=== PATIENT | male | born 2000 | race Hispanic/Latino ===

== ENCOUNTER 2023-10-20 00:13 | Emergency (ER) | payer OTHER ==
[~2023-10-20] VITALS: Ht 175.3 cm; Wt 101.0 kg
[~2023-10-20 00:13] MED LIST: IMIT50TA PO
[2023-10-20] MEDS ORDERED: GABA-282 PO (00:20)
[2023-10-20] MEDS ORDERED: TRAZ1TAB11 PO (00:20)
[2023-10-20] MEDS ORDERED: BACT800T5 PO (01:05)
[2023-10-20] MEDS ORDERED: BACTRIM 160MG/800MG DS TAB PO ONE (01:10)
[2023-10-20 01:15] VITALS: BP 130/60; TEMP 96.8; O2SAT 97
== END 2023-10-20 01:53 | disposition home or self-care (01) ==
LOC: M ED 00:13
DX: L05.91 Pilonidal cyst without abscess (principal); Z79.899 Other long term (current) drug therapy

== ENCOUNTER → 2024-02-05 | Outpatient (REF) ==
[~2024-02-05] MED LIST changes: +BACT800T5 PO; +GABA-282 PO; +TRAZ1TAB11 PO
== END ==
LOC: M PLAIMG 10:11
PROVIDERS: ATTEND Internal Medicine
DX: R06.02 Shortness of breath (principal)

== ENCOUNTER → 2024-09-01 | Outpatient (REF) ==
[~2024-09-01] MED LIST changes: +GABA-1172 PO; -GABA-282 PO
[2024-09-03 13:48] LABS: HERPES ZOSTER, VARICELLA IgG 1.58 S/CO (>=1.00)
[2024-09-03 15:22] LABS: QuantiFERON-TB Gold Plus NEGATIVE (NEGATIVE)
== END ==
LOC: M LAB 14:24
PROVIDERS: ATTEND Family Medicine
DX: Z02.1 Encounter for pre-employment examination (principal)

== ENCOUNTER → 2025-01-05 | Outpatient (REF) | LOC: M EMP 10:25 | PROVIDERS: ATTEND Family Medicine | DX: Z01.89 Encounter for other specified special examinations (principal) ==

== ENCOUNTER → 2025-08-19 | Outpatient (CLI) | payer OTHER | LOC: M RAD 07:23 | PROVIDERS: ATTEND Nurse Practitioner Family | DX: R94.5 Abnormal results of liver function studies (principal) ==